=== PATIENT | female | born 1960 | race Caucasian/White ===

== ENCOUNTER 2017-11-30 18:02 | Emergency (ER) | payer OTHER ==
[2017-11-30 18:17] VITALS: TEMP 97.9
--- NOTE | 2017-11-30 18:27 | CPEKG ---
Heart Rate: 64 RR Interval: 938 P-R Interval: 168 QRSD Interval: 94 QT Interval: 400 QTC Interval: 413 P [place]: 61 QRS [place]: 53 T Wave [place]: 24 EKG Severity - NORMAL ECG - EKG Impression: SINUS RHYTHM Electronically Signed By: Wong Yu 30-Nov-2017 18:51:30
--- NOTE | 2017-11-30 18:28 | EDPHY ---
H & P Time Seen by Provider: 11/30/17 18:10 HPI/ROS: Chief complaint. Near syncope HPI. Patient is a 57-year-old female presents emergency department after feeling faint and like she could pass out. She was having her nails done about 1 hr ago. She began to feel lightheaded and faint. Her vision got somewhat blurry and her hearing got somewhat distant. She put her head between her knees and took some deep breaths and her symptoms have now resolved. Symptoms lasted about 5 min. There are now resolved she feels well. She has not had similar symptoms previously. She had no chest discomfort or trouble breathing. No abdominal pain nausea or vomiting. No unusual leg pain or swelling ROS Constitutional. no fever/chills, no weakness Eyes. no problems with vision ENT. no sore throat, no nasal drainage Cardiovascular. no chest pain Respiratory. no shortness of breath, no cough Abdominal. no abdominal pain, no nausea/vomiting, no diarrhea . no problems urinating MS. no calf pain/swelling, no neck/back pain, no joint pain Skin. no rash Lymph. no swollen glands Neuro. Near syncope Past Medical/Surgical History: Diverticulitis Social History: , nonsmoker, no alcohol Smoking Status: Never smoked Physical Exam: General Appearance: Alert pleasant well-developed female no distress vital signs are stable Eyes: Pupils equal and round no pallor or injection. ENT, Mouth: Mucous membranes are moist. Respiratory: There are no retractions, lungs are clear to auscultation. Cardiovascular: Regular rate and rhythm. Gastrointestinal: Abdomen is soft and nontender, no masses, bowel sounds normal. Neurological: Awake and alert, sensory and motor exams grossly normal. Skin: Warm and dry, no rashes. Musculoskeletal: Neck is supple nontender. Extremities symmetrical, full range of motion. Psychiatric: Patient is oriented X 3, there is no agitation. Constitutional: Initial Vital Signs Temperature (C) 36.6 C 11/30/17 18:14 Heart Rate 74 11/30/17 18:14 Respiratory Rate 18 11/30/17 18:14 Blood Pressure 148/94 H 11/30/17 18:14 O2 Sat (%) 98 11/30/17 18:14 O2 Delivery Mode Room Air Allergies/Adverse Reactions: No Known Allergies Allergy (Unverified 11/30/17 18:14) Home Medications: Medication Instructions Recorded NK [No Known Home Meds] 11/30/17 Medical Decision Making - Diagnostics EKG Interpretation: EKG interpreted by me shows normal sinus rhythm normal interval and axis. QRS is normal there is no significant ST elevation or depression. There is no arrhythmia. The rate is 64 Procedures: IV normal saline, monitor ED Course/Re-evaluation: Re-evaluation at 7:15 p.m.. Patient has no symptoms. She is stable. The patient, her , and I discussed EKG and lab results. We discussed treatment plan including criteria for return importance of follow-up further evaluation. She expresses understanding and agreement Differential Diagnosis: This is likely vasovagal syncope. I considered electrolyte abnormalities, cardiac arrhythmia. - Data Points Laboratory Results: Laboratory Results 11/30/17 18:23 11/30/17 18:23 11/30/17 11/30/17 18:23 18:23 WBC 6.85 10^3/uL 10^3/uL (3.80-9.50) RBC 4.32 10^6/uL 10^6/uL (4.18-5.33) Hgb 13.9 g/dL g/dL (12.6-16.3) Hct 40.3 % % (38.0-47.0) MCV 93.3 fL fL (81.5-99.8) MCH 32.2 pg pg (27.9-34.1) MCHC 34.5 g/dL g/dL (32.4-36.7) RDW 12.6 % % (11.5-15.2) Plt Count 254 10^3/uL 10^3/uL (150-400) MPV 10.1 fL fL (8.7-11.7) Neut % (Auto) 53.0 % % (39.3-74.2) Lymph % (Auto) 36.5 % % (15.0-45.0) [place] % (Auto) 6.9 % % (4.5-13.0) Eos % (Auto) 2.8 % % (0.6-7.6) Baso % (Auto) 0.7 % % (0.3-1.7) Nucleat RBC Rel Count 0.0 % % (0.0-0.2) Absolute Neuts (auto) 3.63 10^3/uL 10^3/uL (1.70-6.50) Absolute Lymphs (auto) 2.50 10^3/uL 10^3/uL (1.00-3.00) Absolute Monos (auto) 0.47 10^3/uL 10^3/uL (0.30-0.80) Absolute Eos (auto) 0.19 10^3/uL 10^3/uL (0.03-0.40) Absolute Basos (auto) 0.05 10^3/uL 10^3/uL (0.02-0.10) Absolute Nucleated RBC 0.00 10^3/uL 10^3/uL (0-0.01) Immature Gran % 0.1 % % (0.0-1.1) Immature Gran # 0.01 10^3/uL 10^3/uL (0.00-0.10) Sodium 142 mEq/L mEq/L (135-145) Potassium 3.8 mEq/L mEq/L (3.5-5.2) Chloride 104 mEq/L mEq/L (97-110) Carbon Dioxide 25 mEq/l mEq/l (22-31) Anion Gap 13 mEq/L mEq/L (8-16) BUN 21 mg/dL mg/dL (7-23) Creatinine 1.0 mg/dL mg/dL (0.6-1.0) Estimated GFR 57 Glucose 113 mg/dL H mg/dL (70-100) Calcium 9.5 mg/dL mg/dL (8.5-10.4) Medications Given: Discontinued Medications Sodium Chloride (Ns) 1,000 mls @ 0 mls/hr IV EDNOW ONE; Wide Open PRN Reason: Protocol Stop: 11/30/17 18:40 Last Admin: 11/30/17 18:44 Dose: 1,000 mls Departure - Departure Disposition: Home, Routine, Self-Care Clinical Impression: Near syncope Condition: Good Instructions: Near Syncope (ED) Additional Instructions: Drink plenty of fluids and stay hydrated. Regular meals and sleep. Return for another near passing out episode, chest discomfort or trouble breathing. Follow-up Dr. Brown for further evaluation Referrals: Rosa Brown MD [Primary Care Provider] - As per Instructions
[2017-11-30] MEDS ORDERED: NS 1,000 ML IV ONE (18:39)
[2017-11-30 18:53] LABS: PLATELET COUNT 254 10^3/uL (150-400)
[2017-11-30 19:40] VITALS: BP 128/80; PULSE 65; RESP 16; O2SAT 96
== END 2017-11-30 19:38 | disposition home or self-care (01) ==
DX: R55 Syncope and collapse (principal); E86.9 Volume depletion, unspecified

== ENCOUNTER → 2018-02-14 | Outpatient (CLI) | payer OTHER | LOC: BMCIMAGING 13:20 | PROVIDERS: ATTEND Internal Medicine | DX: Z12.31 Encounter for screening mammogram for malignant neoplasm of breast (principal); Z13.820 Encounter for screening for osteoporosis; Z80.3 Family history of malignant neoplasm of breast; Z78.0 Asymptomatic menopausal state ==